=== PATIENT | male | born 1960 | race Caucasian/White ===

== ENCOUNTER 2017-08-11 11:21 | Emergency (ER) | payer MEDICAID ==
--- NOTE | 2017-08-11 11:32 | ED Physician Documentation ---
PD HPI CHEST PAIN - Stated complaint Stated Complaint: CHEST TIGHTNESS/RT ARM/LEG NUMBNESS - Chief complaint Chief Complaint: Cardiac - History obtained from History obtained from: Patient - History of Present Illness Timing - onset: How many days ago (5-6) Timing - onset during: Light activity, Exertion. No: Rest Timing - duration: Days (5-6) Timing - details: Gradual onset, Waxing and waning Quality: Pressure, Tightness. No: Sharp, Pain Location: Left chest Radiation: Right upper extremity Improved by: No: Rest Worsened by: Exertion. No: Inspiration, Eating, Movement, Palpation Associated symptoms: Shortness of air, General Weakness, Cough. No: Nausea, Feeling faint / dizzy, Palpitations Similar symptoms before: Has not had sx before Recently seen: Not recently seen Review of Systems Constitutional: reports: Chills, Myalgias. denies: Fever Nose: reports: Congestion. denies: Rhinorrhea / runny nose Throat: denies: Sore throat Cardiac: reports: Chest pain / pressure. denies: Palpitations, Pedal edema Respiratory: reports: Dyspnea, Cough, Wheezing GI: reports: Nausea. denies: Abdominal Pain, Vomiting, Diarrhea, Bloody / black stool Skin: denies: Rash, Lesions Musculoskeletal: denies: Neck pain, Back pain Neurologic: reports: Generalized weakness. denies: Focal weakness, Numbness, Near syncope, Altered mental status Psychiatric: reports: Other (he says he drinks 2-3 beers daily and denies problems with it. Says last drink was 2 days ago. He does not want info regarding AA nor detox.). denies: Depressed Endocrine: denies: Easy bruising / bleeding Immunocompromised: denies: Immunocompromised PD PAST MEDICAL HISTORY - Past Medical History Cardiovascular: None Respiratory: None Neuro: None Endocrine/Autoimmune: None GI: GERD, Other : Incontinence HEENT: None Psych: Depression, Anxiety Musculoskeletal: Other - Past Surgical History Past Surgical History: Yes Ortho: Hip replacement - Present Medications Home Medications: Ambulatory Orders Medication Instructions Recorded Confirmed Albuterol Sulf [Ventolin Hfa 1 - 2 puffs INH Q4HR PRN #1 inhaler 08/11/17 Inhaler] Dexamethasone [Decadron] 4 mg PO DAILY #5 tablet 08/11/17 Doxycycline Monohydrate 100 mg PO BID #14 tablet 08/11/17 chlordiazePOXIDE [Librium] 25 mg PO Q6H PRN #30 capsule 08/11/17 - Allergies Allergies/Adverse Reactions: Allergies Allergy/AdvReac Type Severity Reaction Status Date / Time No Known Drug Allergies Allergy Verified 08/11/17 11:29 - Living Situation Living Situation: reports: With spouse/s.o. Living Arrangement: reports: At home - Social History Does the pt smoke?: Yes Smoking Status: Current every day smoker Does the pt drink ETOH?: Yes ETOH Use: Other (he says last drink was 2 days ago; feeling shaky today but states it is from anxiety. Denies alcohol problem/withdrawal. ) Does the pt have substance abuse?: No PD ED PE NORMAL - Vitals Vital signs reviewed: Yes - General General: Alert and oriented X 3, Well developed/nourished, Other (somewhat shaky ) - HEENT HEENT: Pharynx benign - Neck Neck: Supple, no meningeal sign, No adenopathy - Cardiac Cardiac: RRR, No murmur - Respiratory Respiratory: Other (congested cough, and some central wheezing with cough/deep breathing. Peripheral is good. ) - Abdomen Abdomen: Soft, Non tender - Back Back: No CVA TTP - Derm Derm: Normal color, Warm and dry - Extremities Extremities: No deformity, No tenderness to palpate, Normal ROM s pain, No edema , No calf tenderness / cord - Neuro Neuro: Alert and oriented X 3, No motor deficit, Normal speech - Psych Psych: Normal mood, Normal affect Results - Vitals Vitals: Oxygen O2 Source Room air - EKG (time done) 11:27 Rate: Rate (enter#) (68) Rhythm: NSR [place]: Normal Intervals: Normal [place] QRS: Normal Ischemia: Normal ST segments. No: ST elevation c/w ischemia, ST depression Computer interpretation: Agree with computer - Labs Labs: Laboratory Tests 08/11/17 08/11/17 08/11/17 11:35 11:35 11:35 WBC 8.5 RBC 4.36 L Hgb 14.6 Hct 42.2 MCV 96.8 H MCH 33.4 H MCHC 34.6 RDW 14.9 Plt Count 211 MPV 8.9 Neut # 4.9 Lymph # 2.3 [place] # 1.1 H Eos # 0.1 Baso # 0.1 Absolute Nucleated RBC 0.00 Nucleated RBC % 0.0 Sodium 137 Potassium 3.5 Chloride 97 L Carbon Dioxide 27 Anion Gap 13.0 BUN 5 L Creatinine 0.4 L Estimated GFR (MDRD) 223 Glucose 103 H Calcium 9.4 Magnesium Total Bilirubin 0.7 AST 107 H ALT 55 Alkaline Phosphatase 65 Troponin I < 0.04 B-Natriuretic Peptide Total Protein 8.3 H Albumin 4.7 Globulin 3.6 Albumin/Globulin Ratio 1.3 Lipase 35 Ethyl Alcohol 08/11/17 08/11/17 11:35 11:35 WBC RBC Hgb Hct MCV MCH MCHC RDW Plt Count MPV Neut # Lymph # Terry # Eos # Baso # Absolute Nucleated RBC Nucleated RBC % Sodium Potassium Chloride Carbon Dioxide Anion Gap BUN Creatinine Estimated GFR (MDRD) Glucose Calcium Magnesium 1.9 Total Bilirubin AST ALT Alkaline Phosphatase Troponin I B-Natriuretic Peptide 89 Total Protein Albumin Globulin Albumin/Globulin Ratio Lipase Ethyl Alcohol 127.4 - Rads (name of study) chest Radiology: Prelim report reviewed (patchy infiltrate lower left c/w pneumonia or atelectasis), EMP read contemporaneously PD MEDICAL DECISION MAKING - ED course Complexity details: reviewed results, re-evaluated patient (he is feeling better with Ativan, and also given steroids for cough/wheezing.), considered differential, d/w patient Departure - Departure Disposition: 01 Home, Self Care Clinical Impression: Chest tightness or pressure Pneumonia Qualifiers: Pneumonia type: due to unspecified organism Laterality: left Lung location: lower lobe of lung Qualified Code(s): J18.1 - Lobar pneumonia, unspecified organism Dyspnea Qualifiers: Dyspnea type: dyspnea on exertion Qualified Code(s): R06.09 - Other forms of dyspnea Condition: Stable Record reviewed to determine appropriate education?: Yes Instructions: ED Dyspnea Shortness of Breath, ED Pneumonia Adult Prescriptions: Albuterol Sulf [Ventolin Hfa Inhaler] 1 - 2 puffs INH Q4HR PRN #1 inhaler PRN Reason: Shortness Of Air/Wheezing chlordiazePOXIDE [Librium] 25 mg PO Q6H PRN #30 capsule PRN Reason: Anxiety Dexamethasone [Decadron] 4 mg PO DAILY #5 tablet Doxycycline Monohydrate 100 mg PO BID #14 tablet Comments: No signs of heart attack or heart failure based on your blood tests x-ray and EKG. There is a small patch of congestion in the lower left consistent with pneumonia. I think your trouble breathing and chest tightness relate to lung problem with infection and some airway congestion. We will treat this with albuterol inhaler, some steroid for inflammation of the airways and an antibiotic for potential infection. He did have some shakiness here which I understand was from some anxiety. If you do feel you have problems with alcohol withdrawal and wished to decrease alcohol use, I also prescribed Librium to use every 6-8 hours to help with shakiness or withdrawal type symptoms should you wish to cut down on your alcohol use. Follow-up with your primary care if your breathing is not improved over the next several days to week. Discharge Date/Time: 08/11/17 14:07
[2017-08-11 11:44] LABS: HGB - HEMOGLOBIN 14.6 g/dL (14.0-18.0); MEAN CORPUSCULAR VOLUME 96.8 fL (80.0-94.0); RED BLOOD COUNT 4.36 10^6/uL (4.70-6.10); WHITE BLOOD COUNT 8.5 x10^3/uL (4.8-10.8)
[2017-08-11 11:45] LABS: BASOPHILS # (AUTO) 0.1 10^3/uL (0.0-0.1); EOSINOPHILS # (AUTO) 0.1 10^3/uL (0.0-0.7); EOSINOPHILS % (AUTO) 1.3 %; LYMPHOCYTES # (AUTO) 2.3 10^3/uL (1.5-3.5); MEAN CORPUSCULAR HEMOGLOBIN 33.4 pg (27.0-31.0); MEAN CORPUSCULAR HGB CONC 34.6 g/dL (32.0-36.0); MEAN PLATELET VOLUME 8.9 fL (7.4-11.4); MONOCYTES # (AUTO) 1.1 10^3/uL (0.0-1.0); MONOCYTES % (AUTO) 12.5 %; NEUTROPHILS # (AUTO) 4.9 10^3/uL (1.5-6.6); NEUTROPHILS % (AUTO) 58.2 %; PLT - PLATELET COUNT 211 10^3/uL (130-450); RED CELL DISTRIBUTION WIDTH 14.9 % (12.0-15.0)
[2017-08-11] MEDS ORDERED: ASPIRIN CHEW 81 MG TABLET PO STA (11:47)
[2017-08-11] MEDS ORDERED: NITROGLYCERIN SL 0.4 MG TABLET SL STA (11:47)
[2017-08-11] MEDS ORDERED: LORazepam 2 MG/ML VIAL IVP STA (11:48)
[2017-08-11 11:57] LABS: ALBUMIN 4.7 g/dL (3.2-5.5); ALBUMIN/GLOBULIN RATIO 1.3 (1.0-2.2); BILIRUBIN,TOTAL 0.7 mg/dL (0.2-1.0); CALCIUM 9.4 mg/dL (8.5-10.3); CREATININE 0.4 mg/dL (0.6-1.2); TOTAL PROTEIN 8.3 g/dL (6.7-8.2)
[2017-08-11 12:07] LABS: MAGNESIUM 1.9 mg/dL (1.7-2.8)
--- NOTE | 2017-08-11 12:41 | XRAY Report ---
EXAM: CHEST RADIOGRAPHY EXAM DATE: 08/11/2017 12:01 PM. CLINICAL HISTORY: Chest pain. COMPARISON: None. TECHNIQUE: 2 views. FINDINGS: Lungs/Pleura: There is mild patchy opacity at the base of the left lower lobe. No pleural effusion. N o pneumothorax. Normal volumes. Mediastinum: Heart and mediastinal contours are unremarkable. Other: No acute osseous abnormality. IMPRESSION: Mild patchy opacity at the base of the left lower lobe may be due to atelectasis, aspiration, or pneu monia. [facility] Referring Provider Line: [phone] SITE ID: [id number]
--- NOTE | 2017-08-11 12:41 | XRAY Preliminary Report ---
Exam: XR CHEST 2 VIEW X-RAY IMPRESSION: Mild patchy opacity at the base of the left lower lobe may be due to atelectasis, aspiration, or pneu monia. [facility] SITE ID: [id number]
[2017-08-11] MEDS ORDERED: MAG HYDROX/AL HYDROX/SIMETH 30 ML UDC PO STA (12:47)
[2017-08-11] MEDS ORDERED: LIDOCAINE VISCOUS 2% 15 ML UDC MM STA (12:47)
[2017-08-11] MEDS ORDERED: DOXYCYCLINE 100 MG TABLET PO STA (13:28)
[2017-08-11] MEDS ORDERED: DEXAMETHASONE 10 MG/ML VIAL PO STA (13:28)
[2017-08-11 13:47] VITALS: BP 113/76
[2017-08-11] MEDS ORDERED: CHERRY SYRUP 10 ML UDC PO ONE (13:49)
== END 2017-08-11 14:07 | disposition home or self-care (01) ==
LOC: ED 11:21
DX: J18.1 Lobar pneumonia, unspecified organism (principal); F17.200 Nicotine dependence, unspecified, uncomplicated
CPT/HCPCS: 36415; 71046; 80053; 80320; 83690; 83735; 83880; 84484; 85025; 93005; 96374; 99284; 99285; A9270; J2060

== ENCOUNTER 2019-01-26 19:42 | Emergency (ER) | payer MEDICAID ==
--- NOTE | 2019-01-26 19:56 | ED Physician Documentation ---
History of Present Illness - Stated complaint Stated Complaint: SOA, BLOOD IN BM, STOMACH PX - Chief complaint Chief Complaint: Abd Pain - Additonal information Additional information: This is a 58-year-old male who denies past medical history other than heavy alcohol use who presents with abdominal bloating, some shortness of breath, blood in his stool. Patient states that his shortness of breath occurs in the morning when he wakes up and has been ongoing for around 1 month. He denies any cough, or blood in his sputum. No fever or chills. His abdomen is began getting larger and larger over the last week. He denies any diagnosis of cirrhosis, but states he has not seen a doctor for a long time, and he drinks heavily each day for many years. Over the last day he has noticed some bright red blood in his stool intermittently, he is also has a very dark stools. He denies lightheadedness or syncope. Review of Systems Constitutional: denies: Fever Nose: denies: Epistaxis Cardiac: denies: Chest pain / pressure Respiratory: reports: Dyspnea GI: reports: Abdominal Swelling : denies: Dysuria Skin: denies: Rash Neurologic: denies: Generalized weakness PD PAST MEDICAL HISTORY - Past Medical History Cardiovascular: None Respiratory: None Endocrine/Autoimmune: None GI: GERD, Other : Incontinence HEENT: None Psych: Depression, Anxiety Musculoskeletal: Other - Past Surgical History Past Surgical History: Yes Ortho: Hip replacement - Present Medications Home Medications: Ambulatory Orders Medication Instructions Recorded Confirmed Albuterol Sulf [Ventolin Hfa 1 - 2 puffs INH Q4HR PRN #1 inhaler 08/11/17 Inhaler] Doxycycline Monohydrate 100 mg PO BID #14 tablet 08/11/17 chlordiazePOXIDE [Librium] 25 mg PO Q6H PRN #30 capsule 08/11/17 dexAMETHasone [Decadron] 4 mg PO DAILY #5 tablet 08/11/17 - Allergies Allergies/Adverse Reactions: Allergies Allergy/AdvReac Type Severity Reaction Status Date / Time No Known Drug Allergies Allergy Verified 08/11/17 11:29 - Social History Does the pt smoke?: Yes Smoking Status: Current every day smoker Does the pt drink ETOH?: Yes Does the pt have substance abuse?: No PD ED PE NORMAL - Vitals Vital signs reviewed: Yes - General General: Alert and oriented X 3, No acute distress - HEENT HEENT: PERRL - Neck Neck: Supple, no meningeal sign - Cardiac Cardiac: No murmur, Other (Tachycardic, regular rhythm) - Respiratory Respiratory: No respiratory distress, Other (Bibasilar crackles) - Abdomen Abdomen: Other (Distended diffusely, hepatomegaly, spider angiomata) - Derm Derm: Warm and dry - Extremities Extremities: No deformity - Neuro Neuro: Alert and oriented X 3, Other (Slightly slurred speech with alcohol on breath) - Psych Psych: Normal mood, Normal affect Results - Vitals Vitals: Vital Signs - 24 hr 01/26/19 01/26/19 01/26/19 19:45 21:42 22:08 Temperature 36 C L Heart Rate 120 H 105 H 99 Respiratory 20 18 17 Rate Blood Pressure 127/67 122/64 118/67 O2 Saturation 97 93 91 L 01/26/19 01/26/19 01/26/19 22:30 23:00 23:30 Temperature Heart Rate 100 99 101 H Respiratory 21 17 21 Rate Blood Pressure 108/62 106/55 L 108/62 O2 Saturation 92 91 L 92 Oxygen O2 Source Nasal cannula - EKG (time done) 20:43 Other comments: Other comments (Rate 101, rhythm sinus tachycardia, axis normal, there is no ST segment elevation or depression, there is some T wave flattening in the inferior leads, no abnormal T wave inversions. Intervals within normal limits.) - Labs Labs: Laboratory Tests 01/26/19 01/26/19 01/26/19 19:38 19:55 19:55 WBC 15.4 H RBC 3.02 L Hgb 10.3 L Hct 30.0 L MCV 99.3 H MCH 34.1 H MCHC 34.3 RDW 18.0 H Plt Count 217 MPV 11.0 Neut # (Auto) Not Reportable Lymph # (Auto) Not Reportable [place] # (Auto) Not Reportable Eos # (Auto) Not Reportable Baso # (Auto) Not Reportable Absolute Nucleated RBC Not Reportable Total Counted 100 Band Neuts % (Manual) 2 Abnorm Lymph % (Manual) 0 Nucleated RBC % Not Reportable Neutrophils # (Manual) 11.6 H Lymphocytes # (Manual) 2.6 Monocytes # (Manual) 0.8 Eosinophils # (Manual) 0.5 Basophils # (Manual) 0.0 Differential Comment MANUAL DIFFERENTIAL Platelet Estimate NORMAL (130-450,000) Platelet Morphology NORMAL APPEARANCE RBC Morph Micro Appear NORMAL APPEARANCE PT INR Sodium 140 Potassium 3.2 L Chloride 104 Carbon Dioxide 25 Anion Gap 11.0 BUN 8 Creatinine 0.7 Estimated GFR (MDRD) 116 Glucose 130 H Calcium 8.5 Total Bilirubin 3.3 H AST 125 H ALT 41 Alkaline Phosphatase 102 Troponin I High Sens Total Protein 7.1 Albumin 3.1 L Globulin 4.0 Albumin/Globulin Ratio 0.8 L Lipase 92 H Ethyl Alcohol 303.4 01/26/19 01/26/19 19:58 19:58 WBC RBC Hgb Hct MCV MCH MCHC RDW Plt Count MPV Neut # (Auto) Lymph # (Auto) [place] # (Auto) Eos # (Auto) Baso # (Auto) Absolute Nucleated RBC Total Counted Band Neuts % (Manual) Abnorm Lymph % (Manual) Nucleated RBC % Neutrophils # (Manual) Lymphocytes # (Manual) Monocytes # (Manual) Eosinophils # (Manual) Basophils # (Manual) Differential Comment Platelet Estimate Platelet Morphology RBC Morph Micro Appear PT 19.5 H INR 1.8 H Sodium Potassium Chloride Carbon Dioxide Anion Gap BUN Creatinine Estimated GFR (MDRD) Glucose Calcium Total Bilirubin AST ALT Alkaline Phosphatase Troponin I High Sens 10.0 Total Protein Albumin Globulin Albumin/Globulin Ratio Lipase Ethyl Alcohol - Rads (name of study) CT abd/pelvis Radiology: Other (Large amount of ascites in the abdomen and pelvis, stigmata of portal hypertension, and cirrhosis. Atelectasis in the right lower lobe, benign-appearing left renal cyst.) PD MEDICAL DECISION MAKING - ED course Complexity details: considered differential (Cirrhosis, ascites, GI bleed, variceal bleed, gastritis, alcohol intoxication, electrolyte abnormality, pleural effusion, ACS, pneumonia, aspiration, anemia) ED course: Patient presents tachycardic but with a normal blood pressure. He does have what appears to be ascites on exam and stigmata of liver disease including spider angiomata. His abdomen is nontender. He is mildly hypoxic on room air around 91%, is placed on nasal cannula for comfort. Chest x-ray is obtained and shows some bibasilar atelectasis. Rectal exam does reveal melena and guaiac positive stool. He has no vomiting while he is here. Labs are notable for an anemia with hemoglobin of 10.7, which appears to be 2 points lower than his baseline one year ago, though is uncertain how acute this drop is. His platelets are normal, his INR is elevated at 1.8, and his lipase is mildly elevated but he is having no significant abdominal pain at this time. Patient was given ceftriaxone, 80 mg of pantoprazole push, and started on octreotide given that I do not know if he has varices or not. A CT scan was performed which shows stigmata of liver disease and confirmed ascites. Patient appears to have new onset ascites in the setting of previously undiagnosed cirrhosis. He has a GI bleed, with unclear source, he may have some gastritis, varices are possible although he is not having any vomiting and I highly doubt large volume variceal bleed. I spoke with Dr. Gaviria of [facility] who accepted patient for transfer. Patient was given 0.5 mg of Ativan here to stave off any symptoms of withdrawal, his alcohol level on arrival was 300 but he has a history of heavy alcohol use and serious withdrawal. Patient is in agreement with the plan and was transferred via ALS. Departure - Departure Disposition: 02 Transfer Acute Care Hosp Clinical Impression: Cirrhosis Qualifiers: Hepatic cirrhosis type: alcoholic cirrhosis Ascites presence: with ascites Qualified Code(s): K70.31 - Alcoholic cirrhosis of liver with ascites GI bleed Qualifiers: GI bleed type/associated pathology: unspecified gastrointestinal hemorrhage type Qualified Code(s): K92.2 - Gastrointestinal hemorrhage, unspecified Ascites Qualifiers: Ascites type: due to alcoholic cirrhosis Qualified Code(s): K70.31 - Alcoholic cirrhosis of liver with ascites Alcohol intoxication Qualifiers: Complication of substance-induced condition: with unspecified complication Qualified Code(s): F10.929 - Alcohol use, unspecified with intoxication, unspecified Condition: Stable Discharge Date/Time: 01/26/19 23:44
[2019-01-26 20:07] LABS: BASOPHILS % (AUTO) 1.2 %; EOSINOPHILS % (AUTO) 2.3 %; HGB - HEMOGLOBIN 10.3 g/dL (14.0-18.0); LYMPHOCYTES % (AUTO) 20.5 %; MEAN CORPUSCULAR HEMOGLOBIN 34.1 pg (27.0-31.0); MEAN CORPUSCULAR HGB CONC 34.3 g/dL (32.0-36.0); MEAN CORPUSCULAR VOLUME 99.3 fL (80.0-94.0); MONOCYTES % (AUTO) 10.4 %; PLT - PLATELET COUNT 217 10^3/uL (130-450); RED BLOOD COUNT 3.02 10^6/uL (4.70-6.10); WHITE BLOOD COUNT 15.4 x10^3/uL (4.8-10.8)
[2019-01-26 20:09] LABS: ABNORMAL LYMPHS % (MANUAL) 0 %
[2019-01-26] MEDS ORDERED: cefTRIAXone 1 GM in SODIUM CHLORIDE 0.9% MINIBAG 100 ML IV STA (20:10)
[2019-01-26] MEDS ORDERED: PANTOPRAZOLE 40 MG VIAL IVP STA (20:10)
[2019-01-26 20:19] LABS: ALBUMIN 3.1 g/dL (3.2-5.5); ALBUMIN/GLOBULIN RATIO 0.8 (1.0-2.2); BILIRUBIN,TOTAL 3.3 mg/dL (0.2-1.0); CALCIUM 8.5 mg/dL (8.5-10.3); CREATININE 0.7 mg/dL (0.6-1.2); TOTAL PROTEIN 7.1 g/dL (6.7-8.2)
[2019-01-26 20:23] LABS: INR 1.8 (0.8-1.2); PT - PROTHROMBIN TIME 19.5 secs (9.9-12.6)
[2019-01-26] MEDS ORDERED: cefTRIAXone 1 GM VIAL ONE (20:27)
[2019-01-26] MEDS ORDERED: IOVERSOL 320 100 ML VIAL IVP ONE ×2 (20:34→20:50)
[2019-01-26 20:35] LABS: BAND NEUTROPHILS % (MANUAL) 2 %; DIFFERENTIAL COMMENT MANUAL DIFFERENTIAL; EOSINOPHILS # (MANUAL) 0.5 10^3/uL (0-0.7); LYMPHOCYTES # (MANUAL) 2.6 10^3/uL (1.5-3.5); LYMPHOCYTES % (MANUAL) 17 %; MONOCYTES # (MANUAL) 0.8 10^3/uL (0.0-1.0); PLATELET ESTIMATE, MANUAL NORMAL (130-450,000) (NORMAL); PLATELET MORPHOLOGY NORMAL APPEARANCE (NORMAL); RBC MORPHOLOGY (MULTIPLE) NORMAL APPEARANCE (NORMAL)
--- NOTE | 2019-01-26 20:37 | XRAY Report ---
Reason: cough Procedure Date: 01/26/2019 Accession Number: [id number] / [id number] Procedure: XR - Chest 2 View X-Ray CPT Code: 67017 FULL RESULT: EXAM: CHEST RADIOGRAPHY EXAM DATE: 01/26/2019 08:25 PM. CLINICAL HISTORY: Cough. COMPARISON: CHEST 2 VIEW 08/11/2017 11:40 AM. TECHNIQUE: 2 views. FINDINGS: Lungs/Pleura: Low lung volumes with mild crowding. Mild bronchial wall thickening centrally. Small amount of ground glass and reticulation at the lung bases. No pleural effusion. No pneumothorax. Mediastinum: Cardiac silhouette size appears unremarkable. Mild vascular calcification. Other: None. IMPRESSION: Low lung volumes with mild crowding and mild elevation of the right hemidiaphragm. Mild bronchial wall thickening centrally, suggesting airways disease. Small amount of groundglass and reticular opacity at the lung bases, which may represent a combination of mild hypoventilatory atelectasis, scarring, and/or mild infectious/inflammatory change. [facility]
--- NOTE | 2019-01-26 21:09 | CT Report ---
Reason: Abdominal bloating, blood in stool Procedure Date: 01/26/2019 Accession Number: [id number] / [id number] Procedure: CT - Abdomen/Pelvis W CPT Code: FULL RESULT: EXAM: CT ABDOMEN AND PELVIS EXAM DATE: 01/26/2019 08:48 PM. CLINICAL HISTORY: Abdominal bloating, blood in stool. COMPARISONS: None. TECHNIQUE: Routine helical CT imaging was performed through the abdomen and pelvis. IV contrast: OPTI 320 100ML. Enteric contrast: No. Reconstructions: Coronal and sagittal. In accordance with CT protocol optimization, one or more of the following dose reduction techniques were utilized for this exam: automated exposure control, adjustment of mA and/or KV based on patient size, or use of iterative reconstructive technique. FINDINGS: Lung Bases: Eventration of the right hemidiaphragm. Subsegmental and dependent atelectasis in the right lower lobe. Heart size within normal limits. Liver: Nodular surface of the liver suggestive of cirrhosis. Mild hepatomegaly. No suspicious hepatic lesions. Recanalization of the umbilical vein consistent with portal hypertension. Gallbladder/Bile Ducts: Limited evaluation for inflammatory changes about the gallbladder due to large amount of ascites. No significant intrahepatic or extra hepatic biliary ductal dilatation. Spleen: Normal. Pancreas: Normal. Adrenal Glands: Normal. Kidneys: Left renal cyst associated with a focus of peripheral calcifications measuring 2 x 2 cm in axial plane. No suspicious renal lesions. No hydronephrosis or nephrolithiasis. Normal course and caliber of the ureters without evidence of stones. Peritoneal Cavity/Bowel: Large amount of ascites in the abdomen and pelvis limiting evaluation for inflammatory changes. Normal caliber of the bowel without evidence of obstruction. Appendix not visualized with certainty. Pelvic Organs: Urinary bladder unremarkable. Prostate gland within normal limits. Vasculature: Scattered atherosclerotic plaquing of the abdominal aorta. No aneurysmal dilatation. Bones: No significant abnormality. Multilevel degenerative disease of the lumbar spine. Other: None. IMPRESSION: 1. Large amount of ascites in the abdomen and pelvis most likely from portal hypertension limits evaluation for inflammatory changes. 2. Nodular surface of the liver consistent with cirrhosis. Recanalization of the umbilical vein consistent with portal hypertension. 3. Subsegmental and dependent atelectasis in the right lower lobe. 4. Benign left renal cyst associated with a focus of peripheral calcifications measuring 2 x 2 cm in the axial plane. [facility]
[2019-01-26] MEDS ORDERED: OCTREOTIDE 500 MCG in SODIUM CHLORIDE 0.9% 100ML 95 ML IV STA (21:20)
[2019-01-26] MEDS ORDERED: LORazepam 2 MG/ML VIAL IVP STA (21:39)
[2019-01-26] MEDS ORDERED: LACTATED RINGERS 1,000 ML IV STA (21:39)
[2019-01-26 23:44] VITALS: BP 108/62
== END 2019-01-26 23:44 | disposition short-term general hospital (02) ==
LOC: ED 19:42
DX: K70.31 Alcoholic cirrhosis of liver with ascites (principal); K92.2 Gastrointestinal hemorrhage, unspecified; F10.929 Alcohol use, unspecified with intoxication, unspecified; D64.9 Anemia, unspecified; F17.200 Nicotine dependence, unspecified, uncomplicated
CPT/HCPCS: 36415; 71046; 74177; 80053; 80320; 83690; 84484; 85025; 85610; 93005; 96365; 96375; 99284; 99285; J2060; J2354; J7120; Q9967

== ENCOUNTER 2019-01-26 23:44 | Outpatient (CLI) | payer MEDICAID | END 2019-01-26 23:45 | disposition short-term general hospital (02) | LOC: EMS 23:44 | PROVIDERS: ATTEND Surgery | DX: K74.60 Unspecified cirrhosis of liver (principal); R18.8 Other ascites; K92.1 Melena | CPT/HCPCS: A0425; A0426; A0999 ==

== ENCOUNTER 2019-03-31 11:17 | Emergency (ER) | payer MEDICAID ==
[2019-03-31] MEDS ORDERED: ALBUMIN 25% 12.5 GM/50 ML VIAL IV STA (11:48)
[2019-03-31] MEDS ORDERED: SODIUM CHLORIDE 0.9% 500 ML IV ONE (11:49)
--- NOTE | 2019-03-31 11:50 | ED Physician Documentation ---
PD HPI ABD PAIN - Stated complaint Stated Complaint: GLF/ABD PX - Chief complaint Chief Complaint: Abd Pain - History obtained from History obtained from: Patient - History of Present Illness Timing - onset: Today Timing - details: Abrupt onset Associated symptoms: Nausea, Diarrhea, Melena, Dizzy, Near syncope / syncope, Other (Reports a weight gain of about 20 pounds in the past couple of days). No: Fever, Vomiting, Dysuria, Hematuria, Chest pain Similar symptoms before: Diagnosis Recently seen: Admitted - Additional information Additional information: This is a 58-year-old man who presents with his sister complains that his legs gave out on him any kind of crumpled to the floor just prior to arrival. Is a history of alcoholic cirrhosis and had to be admitted to [facility] about a month ago with subsequent paracentesis where they took off more than 6 L. He was subsequently transferred to an alcohol rehab center in [place] and ended up at [facility] where they did 4 or 5 sequential paracentesis. He was discharged within the past 2 to 3 weeks and says he has not drink alcohol for the past 60 days. Complains that his whole body is aching he is been nauseous and had some diarrhea he was diagnosed with ulcers in his colon and he thinks that he seen some dark stool consistent with blood. He denies any peripheral edema. He has not had a fever. He does complain of rib pain but not specific chest pain and he has been short of breath but not coughing. He says they did put him on a medication to "make him pee". Review of Systems Constitutional: denies: Fever Nose: denies: Congestion Throat: denies: Sore throat Cardiac: denies: Chest pain / pressure, Pedal edema Respiratory: reports: Dyspnea. denies: Cough GI: reports: Abdominal Pain, Abdominal Swelling, Nausea, Vomiting, Diarrhea, Bloody / black stool : denies: Dysuria Skin: denies: Rash Musculoskeletal: denies: Extremity pain Neurologic: reports: Near syncope. denies: Syncope, Confused, Altered mental s tatus, Headache, Head injury, LOC PD PAST MEDICAL HISTORY - Past Medical History Cardiovascular: None Respiratory: None Neuro: Seizure disorder, Other Endocrine/Autoimmune: None GI: GERD, Other : Incontinence HEENT: None Psych: Depression, Anxiety Musculoskeletal: Other - Past Surgical History Past Surgical History: Yes Ortho: Hip replacement - Present Medications Home Medications: Ambulatory Orders Medication Instructions Recorded Confirmed Albuterol Sulf [Ventolin Hfa 1 - 2 puffs INH Q4HR PRN #1 inhaler 08/11/17 Inhaler] Doxycycline Monohydrate 100 mg PO BID #14 tablet 08/11/17 chlordiazePOXIDE [Librium] 25 mg PO Q6H PRN #30 capsule 08/11/17 dexAMETHasone [Decadron] 4 mg PO DAILY #5 tablet 08/11/17 - Allergies Allergies/Adverse Reactions: Allergies Allergy/AdvReac Type Severity Reaction Status Date / Time No Known Drug Allergies Allergy Verified 03/31/19 11:28 - Social History Does the pt smoke?: Yes Smoking Status: Current every day smoker Does the pt drink ETOH?: Yes Does the pt have substance abuse?: No - Immunizations Immunizations are current?: No PD ED PE NORMAL - Vitals Vital signs reviewed: Yes (I was called immediately into the room for a blood pressure in the 70s syst) - General General: Alert and oriented X 3, No acute distress, Well developed/nourished - HEENT HEENT: Atraumatic, PERRL, Other (He does have scleral icterus.). No: Moist mucous membranes (Dry mucous membranes) - Neck Neck: No adenopathy, Thyroid normal - Cardiac Cardiac: RRR. No: No murmur (There is a soft 2/6 systolic murmur at the right upper sternal border), Strong equal pulses (Pulses are diminished in the radial but palpable bilaterally) - Respiratory Respiratory: No respiratory distress, Clear bilaterally - Abdomen Abdomen: Normal bowel sounds, Other (Abdominal distention with fluid wave consistent with ascites. The abdomen is tender diffusely.) - Derm Derm: Normal color, Warm and dry, Other (He has a multitude of spider hemangiomas on his chest and upper part of his upper extremities) - Extremities Extremities: No deformity, No edema - Neuro Neuro: Alert and oriented X 3, jet blade polisher 2-12 intact, No motor deficit, No sensory deficit, Normal speech Results - Vitals Vitals: Vital Signs - 24 hr 03/31/19 03/31/19 03/31/19 11:28 11:49 12:01 Temperature 36.3 C L Heart Rate 96 91 88 Respiratory 20 14 14 Rate Blood Pressure 73/42 L 97/64 68/41 L O2 Saturation 97 100 100 12/02/19 12/02/19 12/02/19 12:09 12:34 12:36 Temperature 36.6 C 36.6 C Heart Rate 88 90 87 Respiratory 14 12 14 Rate Blood Pressure 92/43 L 91/50 L 94/49 L O2 Saturation 100 03/31/19 03/31/19 03/31/19 12:38 12:50 13:01 Temperature 36.5 C 36.5 C Heart Rate 92 88 93 Respiratory 13 13 14 Rate Blood Pressure 91/50 L 95/51 L 87/76 L O2 Saturation 100 100 03/31/19 13:02 Temperature Heart Rate 93 Respiratory 14 Rate Blood Pressure 103/58 L O2 Saturation 100 Oxygen O2 Source Room air - EKG (time done) 1148 Rate: Rate (enter#) (92) Rhythm: NSR Intervals: Normal GA, Other (IVCD) Ischemia: Non specific changes Compare to prior EKG: Old EKG unavailable - Labs Labs: Microbiology 03/31/19 12:05 Occult Blood - Final Stool Laboratory Tests 03/31/19 03/31/19 03/31/19 11:47 11:47 11:47 WBC 14.4 H RBC 1.88 L Hgb 5.9 L* Hct 17.1 L* MCV 91.0 MCH 31.4 H MCHC 34.5 RDW 21.6 H Plt Count 192 MPV 10.8 Neut # (Auto) 9.9 H Lymph # (Auto) 2.5 Banner # (Auto) 1.6 H Eos # (Auto) 0.1 Baso # (Auto) 0.0 Absolute Nucleated RBC 0.00 Nucleated RBC % 0.0 Platelet Estimate NORMAL (130-450,000) Platelet Morphology NORMAL APPEARANCE RBC Morph Micro Appear 2+ VALENTIN CELLS PT 26.2 H INR 2.4 H Sodium 115 L* Potassium 5.7 H Chloride 86 L Carbon Dioxide 18 L Anion Gap 11.0 BUN 38 H Creatinine 1.1 Estimated GFR (MDRD) 69 L Glucose 98 Lactic Acid Calcium 8.7 Phosphorus 3.9 Magnesium 2.3 Total Bilirubin 5.0 H AST 76 H ALT 38 Alkaline Phosphatase 99 Ammonia B-Natriuretic Peptide Total Protein 5.7 L Albumin 2.6 L Globulin 3.1 Albumin/Globulin Ratio 0.8 L Lipase 70 H Blood Type Blood Type Recheck Antibody Screen Crossmatch IS Only 03/31/19 03/31/19 03/31/19 11:47 11:47 12:02 WBC RBC Hgb Hct MCV MCH MCHC RDW Plt Count MPV Neut # (Auto) Lymph # (Auto) Banner # (Auto) Eos # (Auto) Baso # (Auto) Absolute Nucleated RBC Nucleated RBC % Platelet Estimate Platelet Morphology RBC Morph Micro Appear PT INR Sodium Potassium Chloride Carbon Dioxide Anion Gap BUN Creatinine Estimated GFR (MDRD) Glucose Lactic Acid 4.4 H* Calcium Phosphorus Magnesium Total Bilirubin AST ALT Alkaline Phosphatase Ammonia B-Natriuretic Peptide 24 Total Protein Albumin Globulin Albumin/Globulin Ratio Lipase Blood Type Blood Type Recheck A POSITIVE Antibody Screen Crossmatch IS Only 03/31/19 03/31/19 12:05 12:15 WBC RBC Hgb Hct MCV MCH MCHC RDW Plt Count MPV Neut # (Auto) Lymph # (Auto) Banner # (Auto) Eos # (Auto) Baso # (Auto) Absolute Nucleated RBC Nucleated RBC % Platelet Estimate Platelet Morphology RBC Morph Micro Appear PT INR Sodium Potassium Chloride Carbon Dioxide Anion Gap BUN Creatinine Estimated GFR (MDRD) Glucose Lactic Acid Calcium Phosphorus Magnesium Total Bilirubin AST ALT Alkaline Phosphatase Ammonia 25.3 B-Natriuretic Peptide Total Protein Albumin Globulin Albumin/Globulin Ratio Lipase Blood Type A POSITIVE Blood Type Recheck Antibody Screen NEGATIVE Crossmatch IS Only See Detail - Rads (name of study) CXR Radiology: See rad report (neg acute) PD MEDICAL DECISION MAKING - ED course Complexity details: reviewed results, re-evaluated patient, d/w patient, d/w family ED course: Patient's hemoglobin came back at 5.9. His blood pressure initially improved to 92 systolic and then it went down to 68 systolic. I did do a rectal exam this looks like blood but I am still waiting for the Hemoccult report from the lab. I have ordered emergency release of O+ blood since it can be over 45 minutes to get him type and crossed. I am attempting to contact to the emergency department at [facility] for an emergency acceptance for critical patient however the transfer center stated that they would call us back. 1315: The patient's blood pressure has remained in the 90s. He has received 500 cc bolus of saline and also given albumin. His INR came back at 2.4. Bilirubin of 5.0. His EKG had some nonspecific ST depression through the lateral leads and chest x-ray is clear. I finally heard from the hospitalist, Dr Holguin, at [facility] and he is excepted the patient in transfer. I have called for air transport and they are actually at our facility right now. The receiving physician requested a central line however I do not want to hold up transport for the patient since we do have good IV access. I still do not have confirmation of the blood Hemoccult from the lab. - Critical Care Time(min): 40 Time Includes: Direct patient care, Review records, Reassess patient, Document care, Coordinate care, Medical consult Data interpretation: Labs, CXR Departure - Departure Disposition: 02 Transfer Acute Care Hosp Clinical Impression: GI bleed Qualifiers: GI bleed type/associated pathology: unspecified gastrointestinal hemorrhage type Qualified Code(s): K92.2 - Gastrointestinal hemorrhage, unspecified Anemia Qualifiers: Anemia type: other cause Other causes of anemia: acute posthemorrhagic Qualified Code(s): D62 - Acute posthemorrhagic anemia Alcoholic cirrhosis Qualifiers: Ascites presence: with ascites Qualified Code(s): K70.31 - Alcoholic cirrhosis of liver with ascites Condition: Good Discharge Date/Time: 03/31/19 13:45
[2019-03-31 11:59] LABS: BASOPHILS % (AUTO) 0.2 %; EOSINOPHILS # (AUTO) 0.1 10^3/uL (0.0-0.7); EOSINOPHILS % (AUTO) 0.7 %; LYMPHOCYTES # (AUTO) 2.5 10^3/uL (1.5-3.5); LYMPHOCYTES % (AUTO) 17.1 %; MEAN CORPUSCULAR HEMOGLOBIN 31.4 pg (27.0-31.0); MEAN CORPUSCULAR HGB CONC 34.5 g/dL (32.0-36.0); MEAN PLATELET VOLUME 10.8 fL (7.4-11.4); MONOCYTES # (AUTO) 1.6 10^3/uL (0.0-1.0); MONOCYTES % (AUTO) 11.2 %; NEUTROPHILS # (AUTO) 9.9 10^3/uL (1.5-6.6); NEUTROPHILS % (AUTO) 68.9 %; PLT - PLATELET COUNT 192 10^3/uL (130-450); RED BLOOD COUNT 1.88 10^6/uL (4.70-6.10); RED CELL DISTRIBUTION WIDTH 21.6 % (12.0-15.0); WHITE BLOOD COUNT 14.4 x10^3/uL (4.8-10.8)
[2019-03-31 12:01] LABS: HGB - HEMOGLOBIN 5.9 g/dL (14.0-18.0)
--- NOTE | 2019-03-31 12:24 | XRAY Report ---
Reason: chest pain Procedure Date: 03/31/2019 Accession Number: [id number] / [id number] Procedure: XR - Chest 1 View X-Ray CPT Code: 08789 Final Report FULL RESULT: EXAM: CHEST RADIOGRAPHY EXAM DATE: 03/31/2019 12:01 PM. CLINICAL HISTORY: Chest pain. COMPARISON: CHEST 2 VIEW 01/26/2019. TECHNIQUE: 1 view. FINDINGS: Lungs/Pleura: Mild bibasilar atelectasis. No infiltrate, pleural effusion or pneumothorax. Mediastinum: Within exam limitations, the cardiomediastinal contour is stable. IMPRESSION: No acute process. Minimal basilar atelectasis. RADIA
[2019-03-31 12:25] LABS: ALBUMIN 2.6 g/dL (3.2-5.5); ALBUMIN/GLOBULIN RATIO 0.8 (1.0-2.2); CALCIUM 8.7 mg/dL (8.5-10.3); CREATININE 1.1 mg/dL (0.6-1.2); MAGNESIUM 2.3 mg/dL (1.7-2.8); PHOSPHORUS 3.9 mg/dL (2.5-4.6); TOTAL PROTEIN 5.7 g/dL (6.7-8.2)
[2019-03-31 12:27] LABS: INR 2.4 (0.8-1.2); PLATELET ESTIMATE, MANUAL NORMAL (130-450,000) (NORMAL); PLATELET MORPHOLOGY NORMAL APPEARANCE (NORMAL); PT - PROTHROMBIN TIME 26.2 secs (9.9-12.6)
[2019-03-31 13:03] VITALS: BP 103/58
== END 2019-03-31 13:45 | disposition short-term general hospital (02) ==
LOC: ED 11:17
DX: K92.1 Melena (principal); D62 Acute posthemorrhagic anemia; K70.31 Alcoholic cirrhosis of liver with ascites; I95.9 Hypotension, unspecified; R94.31 Abnormal electrocardiogram [ECG] [EKG]; R01.1 Cardiac murmur, unspecified; D18.01 Hemangioma of skin and subcutaneous tissue; F17.200 Nicotine dependence, unspecified, uncomplicated
CPT/HCPCS: 36415; 71045; 80053; 82140; 82272; 83605; 83690; 83735; 83880; 84100; 85025; 85610; 86850; 86900; 86901; 86920; 87040; 93005; 96365; 99285; 99291; P9016; P9047